=== PATIENT | female | born 1955 | race Caucasian/White ===

== ENCOUNTER → 2019-05-14 | Outpatient (CLI) | payer OTHER ==
[~2019-05-14] MED LIST: HYDROCODONE-AP1 EAC6 PO; KEFLEX500 M1 PO; NORCO 5-325 TA1 EACH PO; PERCOCET 5-3251 EACH PO; PLAVIX 75 MG TA75 M1; PRINIVIL20 MG PO
== END ==
LOC: RAD 11:37
DX: J84.10 Pulmonary fibrosis, unspecified (principal)

== ENCOUNTER → 2019-06-25 | Outpatient (CLI) | payer OTHER | LOC: RAD 14:31 | DX: M21.42 Flat foot [pes planus] (acquired), left foot (principal); M79.672 Pain in left foot ==

== ENCOUNTER → 2019-12-07 | Outpatient (CLI) | payer OTHER | LOC: CAT 10:28 | DX: J84.10 Pulmonary fibrosis, unspecified (principal); Z12.2 Encounter for screening for malignant neoplasm of respiratory organs; J98.4 Other disorders of lung; N28.89 Other specified disorders of kidney and ureter; Z87.891 Personal history of nicotine dependence ==

== ENCOUNTER → 2020-11-01 | Outpatient (CLI) | payer OTHER | LOC: ULTRA 09:51 | PROVIDERS: ATTEND Hospitalist | DX: N28.1 Cyst of kidney, acquired (principal); I12.9 Hypertensive chronic kidney disease with stage 1 through stage 4 chronic kidney disease, or unspecified chronic kidney disease; N18.2 Chronic kidney disease, stage 2 (mild); N28.89 Other specified disorders of kidney and ureter ==

== ENCOUNTER → 2021-03-20 | Outpatient (CLI) | payer OTHER | LOC: CAT 10:53 | PROVIDERS: ATTEND Pediatrics | DX: Z12.2 Encounter for screening for malignant neoplasm of respiratory organs (principal); Z87.891 Personal history of nicotine dependence ==

== ENCOUNTER → 2021-11-23 | Outpatient (CLI) | payer OTHER | LOC: CAT 10-06 13:17 | PROVIDERS: ATTEND Pediatrics | DX: J84.10 Pulmonary fibrosis, unspecified (principal); I25.10 Atherosclerotic heart disease of native coronary artery without angina pectoris; I70.0 Atherosclerosis of aorta; J44.9 Chronic obstructive pulmonary disease, unspecified ==